=== PATIENT | male | born 1975 | race Asian ===

== ENCOUNTER 2020-01-07 21:50 | Emergency (ER) | payer OTHER ==
[~2020-01-07] VITALS: Ht 172.7 cm; Wt 81.2 kg
[2020-01-07 21:53] VITALS: Ht 172.7 cm; Wt 81.2 kg
[2020-01-07 22:42] VITALS: BP 120/85
== END 2020-01-07 22:42 | disposition home or self-care (01) ==
LOC: ED 21:50
DX: S61.451A Open bite of right hand, initial encounter (principal); W54.0XXA Bitten by dog, initial encounter; Y93.89 Activity, other specified; Y92.89 Other specified places as the place of occurrence of the external cause; Y99.8 Other external cause status
CPT/HCPCS: 90715